=== PATIENT | male | born 1990 | race African-American/Black ===

== ENCOUNTER 2023-05-27 02:30 | Emergency (ER) | payer MEDICAID, OTHER ==
[~2023-05-27] VITALS: Ht 182.9 cm; Wt 114.0 kg
[2023-05-27 02:34] VITALS: BP 156/112
[2023-05-27] MEDS ORDERED: MORPHINE SULFATE 4 MG/ML INJ (FOR IV/IM USE) IV STA (02:36)
[2023-05-27] MEDS ORDERED: ONDANSETRON HCL 4MG/2ML INJ IV STA (02:36)
[2023-05-27] MEDS ORDERED: CEFAZOLIN 1000MG PREMIX 50 ML IV ONE (02:45)
[2023-05-27] MEDS ORDERED: MIDAZOLAM HCL 100 MG in DEXT 5% WATER 80 ML IV ONE (02:45)
[2023-05-27] MEDS ORDERED: SODIUM CHLORIDE 0.9% 1,000 ML IV ONE ×2 (02:45)
[2023-05-27] MEDS ORDERED: KETAMINE HCL 50 MG/ML 10ML IM ONE ×2 (02:45)
[2023-05-27] MEDS ORDERED: TETANUS, DIPHTHERIA, PERTUSSIS VAC/PF 0.5ML (>10YR OLD) IM ONE (02:45)
[2023-05-27] MEDS ORDERED: SUCCINYLCHOLINE CHLORIDE 200MG/10ML IV ONE (02:45)
[2023-05-27] MEDS ORDERED: PROPOFOL 10MG/ML 100ML 100 ML IV ONE (02:45)
[2023-05-27] MEDS ORDERED: MIDAZOLAM 100MG/100ML PREMIX IV PRN (03:15)
== END 2023-05-27 02:34 | disposition left against medical advice (07) ==
LOC: ER 02:30
DX: S31.130A Puncture wound of abdominal wall without foreign body, right upper quadrant without penetration into peritoneal cavity, initial encounter (principal); F19.90 Other psychoactive substance use, unspecified, uncomplicated; W34.09XA Accidental discharge from other specified firearms, initial encounter; Y93.89 Activity, other specified; Y92.89 Other specified places as the place of occurrence of the external cause; Y99.8 Other external cause status
CPT/HCPCS: 99281; J0690; J3490; J7030; J2250; J7060